=== PATIENT | male | born 1955 | race Caucasian/White ===

== ENCOUNTER 2018-05-02 12:21 | Day surgery (SDC) | payer OTHER ==
[2018-05-02] MEDS ORDERED: PROPOFOL 20 ML (14:48)
[2018-05-02] MEDS ORDERED: ONDANSETRON 4 MG INJ IV (15:00)
== END 2018-05-02 15:52 | disposition home or self-care (01) ==
LOC: GIL 12:21
DX: Z12.11 Encounter for screening for malignant neoplasm of colon (principal); K57.30 Diverticulosis of large intestine without perforation or abscess without bleeding; E11.9 Type 2 diabetes mellitus without complications; E78.5 Hyperlipidemia, unspecified
CPT/HCPCS: 45378; 82962